=== PATIENT | female | born 1975 | race Caucasian/White ===

== ENCOUNTER 2019-10-23 08:36 | Inpatient (IN) | payer SELFPAY ==
[2019-10-23 08:37] VITALS: BP 96/45; PULSE 86; RESP 16; TEMP 36.4; O2SAT 99; BMI 22.4
--- NOTE | 2019-10-23 08:49 | EKG12_ITS ---
Test Reason : SUB ABUSE Blood Pressure : / mmHG Vent. Rate : 070 BPM Atrial Rate : 070 BPM P-R Int : 168 ms QRS Dur : 078 ms QT Int : 378 ms P-R-T Axes : 057 061 051 degrees QTc Int : 408 ms Normal sinus rhythm Normal ECG Confirmed by DORIAN LAWRENCE, ZARINA ([id number]), tape editor PANTERA URBANO ([id number]) on 10/26/2019 1:11:13 PM Referred By: KELLY Confirmed By:ZARINA ALARCON MD
--- NOTE | 2019-10-23 08:49 | RAD_ITS ---
STUDY: X-RAY CHEST REASON FOR EXAM: Female, 43 years old. CHEST PAIN, MID STERNAL, TECHNIQUE: Single AP portable view of the chest. COMPARISON: None. FINDINGS: The lungs are clear and expanded. Scattered calcified granulomas. There is no demonstrated pleural abnormality. Normal size heart. Normal mediastinum and cynthia. Normal visualized pulmonary arteries. Normal visualized aortic arch and descending thoracic aorta. Normal visualized thoracic spine. Normal visualized ribs, clavicles, and shoulders. There is no demonstrated abnormality of the visualized soft tissue structures of the upper abdomen. RAD/Chest 1 View (Portable) IMPRESSION: Normal x-ray examination of the chest. Electronically Signed: Kofi Torres, at 9:42 EDT , Service support ,
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
[2019-10-23 09:39] LABS: Amphetamine Urine VISTA POSITIVE (<1000 ng/mL); Barbiturate Urine VISTA NEGATIVE (< 200 ng/mL); Benzodiazepine Urine VISTA NEGATIVE (< 200 ng/mL); Cocaine Urine VISTA NEGATIVE (< 300 ng/mL); Ecstacy Urine VISTA NEGATIVE (< 500 ng/mL); Methadone Urine VISTA NEGATIVE (< 300 ng/mL); PCP Urine VISTA NEGATIVE (< 25 ng/mL); THC Urine VISTA NEGATIVE (< 50 ng/mL); Vista UDS pH Range 6
[2019-10-23] MEDS: Lactated Ringers 1,000 ML 999 ML IV (10:01)
[2019-10-23] MEDS: Acetaminophen 500 MG Tablet 1000 MG PO (10:01)
[2019-10-23] MEDS: Ondansetron 4 MG/2 ML Vial IV (10:02)
[2019-10-23 10:03] VITALS: BP 100/58; PULSE 84; RESP 16; TEMP 36.4; O2SAT 99
[2019-10-23 10:10] LABS: Absolute Lymphocyte Count 2.51 X10^3/uL (0.83-4.51); Absolute Neutrophil Count 3.2 X10^3/uL (2.0-7.7); Basophil# 0.03 X10^3/uL; Basophil% 0.5 % (0-1); Eosinophil# 0.11 X10^3/uL; Eosinophils% 1.8 % (0-5); Hematocrit 48.4 % (37-47); Hemoglobin 15.9 g/dL (12.0-15.0); Lymphocyte # 2.51 X10^3/ul (4.0); Lymphocyte % 40.7 % (19-41); Mean Corp Hgb Conc 32.9 g/dL (32-36); Mean Corpuscular Hgb 32.3 pg (27.0-32.0); Mean Corpuscular Volume 98.2 fL (81-99); Monocyte# 0.28 X10^3/uL; Monocyte% 4.5 % (0-10); NRBC Flagged by Analyzer 0 % (0-5); Neutrophil # 3.22 X10^3/uL (2.7-7.7); Neutrophil % 52.2 % (47-70); Platelet Count 301 K/mm3 (150-450); RBC Distribution Width CV 11.9 % (11.6-14.6); RBC Distribution Width SD 43.4 fl (35.1-43.9); Red Blood Count 4.93 M/mm3 (4.2-5.4); White Blood Count 6.2 K/mm3 (4.4-11.0)
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
[2019-10-23 10:19] LABS: ALB/GLOB Ratio 1.2 RATIO (0.9-2.4); AST(SGOT) 28 U/L (15-37); Alanine Aminotransfer ALT/SGPT 21 U/L (13-56); Albumin, Serum 3.9 g/dL (3.2-5.0); Alcohol, Blood (Medical)-Serum < 3.0 mg/dL; Alkaline Phosphatase 132 U/L (45-117); Anion Gap 3 (5-15); BUN 15 mg/dL (7-18); BUN/Creat Ratio 21.7 RATIO (10-20); Calcium,Total 9.5 mg/dL (8.5-10.1); Chloride 103 mmol/L (98-107); Creatinine, Serum 0.69 mg/dL (0.55-1.02); EST Glomerular Filtration Rate 99 mL/min (>60); Est Glom Filt Rate - Afr Amer 120 mL/min (>60); Estimated Creatinine Clearance 108.24 ml/min; GGTP 19 U/L (5-55); Globulin 3.2 g/dL (2.2-4.2); Glucose 77 mg/dL (74-106); Potassium 4.6 mmol/L (3.5-5.1); Protein, Total 7.1 g/dL (6.4-8.2); Sodium Level 139 mmol/L (136-145)
--- NOTE | 2019-10-23 10:20 | CM.ED ---
Social Work Consult: Substance Abuse Informant: Self-Referral Met with patient in room. Introduced self and transition social worker role. Patient open to speaking with this transition social worker. Patient reports substance of choice is opioids and alcohol. Patient seeking medical management of withdrawal symptoms. Patient states to have already been speaking with Pat and plans to follow up with residential program after going through [facility] program at [facility]. Patient voicing no questions. Patient verbally agreeing to [facility] contract. Telephone call to Dania Stewart. Voicemail left updated on patient admission to [facility] program. Only patient room number provided in voicemail. Vonda RAMIREZ, SANDIE
[2019-10-23 11:07] VITALS: BMI 22.8; BMI 22.9
[2019-10-23 11:08] VITALS: BP 83/44; PULSE 67; RESP 17; TEMP 36.7; O2SAT 100
[2019-10-23 11:14] LABS: Prothrombin Time (Protime)PT. 12.3 SECONDS (11.7-14.9)
--- NOTE | 2019-10-23 11:29 | NURSING ---
belongs in [place]
[2019-10-23 11:45] LABS: Mucous, Urine 0 SEEN /hpf (<or=2+); Red Blood Cells-Urine 0 SEEN /hpf (0-5)
[2019-10-23 11:48] LABS: Color, Urine Yellow (Yellow); Glucose, Dipstick Normal (Normal); Ketone-Dipstick Negative (Negative); Leukocyte Esterase-Dipstick 25 /ul (Negative); Nitrite-Dipstick Negative (Negative); Occult Blood-Urine Negative /ul (Negative); Protein-Dipstick Negative (Negative); Specific Gravity, Urine 1.015 (1.002-1.030); Urine Bilirubin Dipstick Negative (Negative); Urine Clarity Sl. Cloudy (Clear); Urine Urobilinogen Normal (Normal)
[2019-10-23 11:59] LABS: Bacteria 1+ /hpf (None Seen); Squamous Epithelial Cells - UA 0-5 SEEN /hpf (5-10); White Blood Cells 0-5 SEEN /hpf (0-5)
[2019-10-23] MEDS: Phenobarbital 32.4 MG Tablet 64.8 MG PO ×3 (12:34→21:02)
[2019-10-23] MEDS: Enoxaparin 40 MG/0.4 ML Syringe SC (12:34)
[2019-10-23] MEDS: Lactated Ringers 1,000 ML 125 ML IV (12:35)
[2019-10-23 14:00] VITALS: BP 91/49; PULSE 81; RESP 16; TEMP 36.9; O2SAT 95
[2019-10-23 20:48] VITALS: BP 104/58; PULSE 72; RESP 16; TEMP 36.8; O2SAT 98
[2019-10-23] MEDS: Buprenorphine HCl 2 MG TAB.SUBL SL (21:06)
[2019-10-24 01:11] VITALS: BP 90/57; PULSE 67; RESP 16; TEMP 36.6; O2SAT 100
[2019-10-24] MEDS: Phenobarbital 32.4 MG Tablet 64.8 MG PO ×6 (01:17→19:32)
[2019-10-24 05:04] VITALS: BP 92/50; PULSE 65; RESP 16; TEMP 36.6; O2SAT 95
[2019-10-24] MEDS: Buprenorphine HCl 2 MG TAB.SUBL SL ×3 (05:08→20:07)
[2019-10-24 08:38] VITALS: BP 90/50; PULSE 78; RESP 14; TEMP 36.4; O2SAT 97
[2019-10-24] MEDS: Folic Acid 1 MG Tablet PO (08:40)
[2019-10-24] MEDS: Thiamine Hydrochloride 100 MG Tablet PO (08:40)
[2019-10-24] MEDS: Enoxaparin 40 MG/0.4 ML Syringe SC (08:41)
[2019-10-24] MEDS: 0.9% Saline Lock 10 ML Syringe IV (08:42)
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
[2019-10-24 12:08] VITALS: BP 94/56; PULSE 73; RESP 18; TEMP 36.3; O2SAT 97
[2019-10-24 14:02] LABS: Anion Gap 3 (5-15); BUN 11 mg/dL (7-18); BUN/Creat Ratio 16.3 RATIO (10-20); Calcium,Total 8.8 mg/dL (8.5-10.1); Chloride 104 mmol/L (98-107); Creatinine, Serum 0.67 mg/dL (0.55-1.02); EST Glomerular Filtration Rate 102 mL/min (>60); Est Glom Filt Rate - Afr Amer 123 mL/min (>60); Estimated Creatinine Clearance 110.34 ml/min; Glucose 85 mg/dL (74-106); Potassium 3.8 mmol/L (3.5-5.1); Sodium Level 140 mmol/L (136-145)
[2019-10-24 16:27] VITALS: BP 92/62; PULSE 85; RESP 16; TEMP 36.6; O2SAT 96
[2019-10-24] MEDS: Methocarbamol 750 MG Tablet 1500 MG PO (16:32)
[2019-10-24 20:05] VITALS: BP 99/62; PULSE 75; RESP 16; TEMP 36.6; O2SAT 99
[2019-10-25] MEDS: Phenobarbital 32.4 MG Tablet 64.8 MG PO ×6 (00:14→21:14)
[2019-10-25 02:16] VITALS: BP 96/58; PULSE 72; RESP 16; TEMP 36.4; O2SAT 96
[2019-10-25] MEDS: Buprenorphine HCl 2 MG TAB.SUBL SL ×3 (05:12→21:13)
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
[2019-10-25 10:26] VITALS: BP 88/44; PULSE 71; RESP 16; TEMP 36.8; O2SAT 99
[2019-10-25] MEDS: Enoxaparin 40 MG/0.4 ML Syringe SC (10:33)
[2019-10-25] MEDS: Thiamine Hydrochloride 100 MG Tablet PO (10:33)
[2019-10-25] MEDS: Folic Acid 1 MG Tablet PO (10:33)
[2019-10-25 12:08] VITALS: BP 98/54; PULSE 75; RESP 16; TEMP 37; O2SAT 100
[2019-10-25] MEDS: Dicyclomine 10 MG Capsule 20 MG PO (13:27)
[2019-10-25] MEDS: Methocarbamol 750 MG Tablet 1500 MG PO (13:27)
[2019-10-25] MEDS: hydrOXYzine PAM 25 MG Capsule 50 MG PO (13:38)
[2019-10-25 16:00] VITALS: BP 117/82; PULSE 73; RESP 18; TEMP 36.8; O2SAT 98
[2019-10-25] MEDS: Gabapentin 300 MG Capsule PO (16:00)
[2019-10-25] MEDS: Acetaminophen 500 MG Tablet PO (16:00)
[2019-10-25 21:09] VITALS: BP 118/73; PULSE 76; RESP 18; TEMP 36.7; O2SAT 97
[2019-10-25 21:22] VITALS: RESP 18
[2019-10-26] MEDS: Gabapentin 300 MG Capsule PO (02:30)
[2019-10-26] MEDS: Phenobarbital 32.4 MG Tablet 64.8 MG PO ×2 (02:30→07:36)
[2019-10-26 02:33] VITALS: BP 100/66; PULSE 82; RESP 18; TEMP 36.9; O2SAT 97
[2019-10-26] MEDS: Folic Acid 1 MG Tablet PO (07:36)
[2019-10-26] MEDS: Thiamine Hydrochloride 100 MG Tablet PO (07:36)
[2019-10-26 07:38] VITALS: BP 105/71; PULSE 78; RESP 16; TEMP 36.8; O2SAT 100
[2019-10-26 07:41] VITALS: BP 105/71; PULSE 78; RESP 16; TEMP 36.8; O2SAT 100
--- NOTE | 2019-10-26 08:57 | DCINST_ITS ---
- Discharge Diagnoses Current Active Problems: Current Active and Chronic Problems Acute hyperactive alcohol withdrawal delirium (Acute) Acute hyperactive opioid withdrawal delirium (Acute) Polysubstance dependence including opioid drug with daily use (Chronic) Reason(s) for Visit for Discharge Instructions: Acute opioid and alcohol withdrawal You will use the following diet at home:: Regular Your food should be the consistency of: Regular Your liquids should be the consistency of: Regular/Thin Discharge Activity: Return to Normal Activity Additional Instructions: You are strongly advised to avoid alcohol or use of any illicit drug. You can take tylenol or ibuprofen for pain. Follow-up with your outpatient rehab program as scheduled. Allergies/Adverse Reactions: Allergies NSAIDS (Non-Steroidal Anti-Inflamma Adverse Reaction (Verified 10/23/19 08:39) Other sulfamethoxazole [From Bactrim] Adverse Reaction (Verified 10/23/19 08:39) Nausea trimethoprim [From Bactrim] Adverse Reaction (Verified 10/23/19 08:39) Nausea Medications to take at Discharge Estradiol [Divigel] 0.06 mg TOPICAL DAILY 09/13/15 Fluoxetine [Prozac] 20 mg PO DAILY 09/13/15 Gabapentin [Neurontin] 800 mg PO DAILY PRN 09/13/15 Progesterone,Micronized [Prometrium] 20 mg PO DAILY 09/13/15 Testosterone [Androgel] 1.25 gm TOPICAL DAILY 09/13/15 Ondansetron [Zofran Odt] 4 mg PO Q8H PRN PRN #10 tablet 03/14/16 Folic Acid 1 mg PO DAILY@0800 30 Days #30 tab 10/26/19 Thiamine Hydrochloride [Vitamin B1] 100 mg PO DAILYCM 30 Days #30 tab 10/26/19 The following prescriptions were given: Folic Acid 1 mg PO DAILY@0800 30 Days #30 tab Transmission Status: Pending to [facility] #[id number] Thiamine Hydrochloride [Vitamin B1] 100 mg PO DAILYCM 30 Days #30 tab Transmission Status: Pending to [facility] #[id number] Primary Care Physician: Care Physician,No Primary [Primary Care Provider] - Please follow up with your Primary Care Physician in: within 1-2 weeks Test Results: Test results from this visit will be discussed in further detail at your follow- up appointment, if applicable. Proposed Discharge Date: 10/26/19
--- NOTE | 2019-10-26 08:59 | DS.PCM_ITS ---
Discharge Date and Diagnosis - Problem List Patient Problems: Active and Suspected Problems Acute hyperactive alcohol withdrawal delirium (Acute) Acute hyperactive opioid withdrawal delirium (Acute) Date of Admission: 10/23/19 Date of Discharge: 10/26/19 - Primary Discharge Diagnosis Acute Problems: Active Problems Acute hyperactive alcohol withdrawal delirium (Acute) Acute hyperactive opioid withdrawal delirium (Acute) Atypical musculoskeletal/chest wall pain - Secondary Discharge Diagnosis Chronic Problems: Chronic Problems Polysubstance dependence including opioid drug with daily use (Chronic) Hospital Course and Treatment Imaging Results: Clinical Impression(s) from Imaging Studies Chest X-Ray 10/23/19 08:49 IMPRESSION: Normal x-ray examination of the chest. Electronically Signed: Kofi Torres, at 9:42 EDT , Service support , Operations: None Procedures: None Summary of Care Provided: The patient is a 44 year old F with past medical history of chronic alcohol use disorder as well as opioid use disorder comes in for medical stabilization from alcohol and opioid withdrawal.. Patient drinks about 12 beers and large amounts of vodka. She also snorts fentanyl daily. Her last drink was a day before admission. Her last use of fentanyl was the night before admission. Patient comes in complaining of anterior chest wall pain. She was admitted and managed on the buprenorphine and phenobarbital taper. There were no acute events during the hospital stay. Patient Problems: Active and Suspected Problems Acute hyperactive alcohol withdrawal delirium (Acute) Acute hyperactive opioid withdrawal delirium (Acute) Subjective: On the day of discharge, patient was seen and examined. She complains of controlled chest pain, reproducible by chest palpation and twisting her torso. Reassurance given that chest x-rays were reported negative for acute fractures. - Physical Exam Vitals/I&O's: Vital Signs Temp Pulse Resp BP Pulse Ox 98.3 F 78 16 105/71 100 10/26/19 07:41 10/26/19 07:41 10/26/19 07:41 10/26/19 07:41 10/26/19 07:41 Oxygen Delivery Method Room Air Weight: 68.3 kg Body Mass Index (BMI) 22.8 Intake and Output for Last 24 Hours 10/24/19 10/25/19 10/26/19 23:59 23:59 23:59 Intake Total 3549 / 3549 300 / 300 Balance 3549 / 3549 300 / 300 General: Alert, Oriented x3, Cooperative, No apparent distress HEENT: Atraumatic, PERRLA, EOMI, Normocephalic Oral: Moist Mucosa Neck: Supple Lungs: Clear to auscultation, Normal air movement Cardiovascular: Regular rate, Regular Rhythm, Normal S1, Normal S2, No murmurs, - - Tenderness on palpation the sternal region. Abdomen: Bowel Sounds Present, Soft, Non Tender, Non-Distended, No Hepato- splenomegaly Extremities: No edema Skin: No rashes Musculoskeletal: No Tenderness to Palpation of Joints or Extremities Lymphatic: No Cervical, Supraclavicular, or Inguinal Adenopathy Neurological: Cranial nerves II-XII grossly intact, Neuro grossly intact Psych/Mental Status: Normal Affect, Appropriate Current Medications Acetaminophen (Tylenol) 500 mg PO Q4H PRN PRN PRN Reason: Temp > 100.4 F Last Admin: 10/25/19 16:00 Dose: 500 mg Documented by: Al Hydroxide/Mg Hydroxide (Mylanta Ii) 30 ml PO Q6H PRN PRN PRN Reason: dyspesia Bisacodyl (Dulcolax) 10 mg RECTAL DAILY PRN PRN Reason: Constipation Buprenorphine HCl (Buprenorphine Hcl) 2 mg SL Q12H [facility]; Taper Stop: 10/26/19 20:59 Last Admin: 10/25/19 21:13 Dose: 2 mg Documented by: Clonidine (Catapres) 0.1 mg PO Q8H PRN PRN PRN Reason: RESTLESSNESS Dicyclomine HCl (Bentyl) 20 mg PO Q6H PRN PRN PRN Reason: abdominal discomfort Last Admin: 10/25/19 13:27 Dose: 20 mg Documented by: Enoxaparin Sodium (Lovenox) 40 mg SC DAILY [facility] Last Admin: 10/25/19 10:33 Dose: 40 mg Documented by: Folic Acid (Folic Acid) 1 mg PO DAILY@0800 [facility] Last Admin: 10/26/19 07:36 Dose: 1 mg Documented by: Gabapentin (Neurontin) 300 mg PO Q8H PRN PRN PRN Reason: moderate to severe anxiety Last Admin: 10/26/19 02:30 Dose: 300 mg Documented by: Hydroxyzine Pamoate (Vistaril Pamoate Capsule) 50 mg PO Q4H PRN PRN PRN Reason: mild anxiety Last Admin: 10/25/19 13:38 Dose: 50 mg Documented by: Loperamide HCl (Imodium) 2 mg PO Q4H PRN PRN PRN Reason: LOOSE STOOLS Methocarbamol (Methocarbamol) 1,500 mg PO Q6H PRN PRN PRN Reason: MUSCLE SPASM Last Admin: 10/25/19 13:27 Dose: 1,500 mg Documented by: Ondansetron HCl (Zofran) 8 mg PO Q8H PRN PRN PRN Reason: NAUSEA Phenobarbital (Phenobarbital) 64.8 mg PO Q6H [facility]; Taper Stop: 10/27/19 20:29 Last Admin: 10/26/19 07:36 Dose: 64.8 mg Documented by: Senna (Senokot) 2 tablet PO QHS PRN PRN Reason: Constipation Sodium Chloride () 10 - 40 ml IV UD PRN PRN Reason: SALINE FLUSH Last Admin: 10/24/19 08:42 Dose: 10 ml Documented by: Thiamine HCl (Vitamin B1) 100 mg PO DAILYCM KT Last Admin: 10/26/19 07:36 Dose: 100 mg Documented by: Trazodone HCl (Desyrel) 100 mg PO QHS PRN PRN Reason: INSOMNIA Discharge Diet: No Restrictions Discharge Activity: Return to Normal Activity Home Medications: Medications to take at Discharge Estradiol [Divigel] 0.06 mg TOPICAL DAILY 09/13/15 Fluoxetine [Prozac] 20 mg PO DAILY 09/13/15 Gabapentin [Neurontin] 800 mg PO DAILY PRN 09/13/15 Progesterone,Micronized [Prometrium] 20 mg PO DAILY 09/13/15 Testosterone [Androgel] 1.25 gm TOPICAL DAILY 09/13/15 Ondansetron [Zofran Odt] 4 mg PO Q8H PRN PRN #10 tablet 03/14/16 Folic Acid 1 mg PO DAILY@0800 30 Days #30 tab 10/26/19 Thiamine Hydrochloride [Vitamin B1] 100 mg PO DAILYCM 30 Days #30 tab 10/26/19 Following Prescriptions Were Given to Patient: Folic Acid 1 mg PO DAILY@0800 30 Days #30 tab Transmission Status: Received by [facility] #[id number] Thiamine Hydrochloride [Vitamin B1] 100 mg PO DAILYCM 30 Days #30 tab Transmission Status: Received by [facility]/pharmacy #[id number] Primary Care Physician: Care Physician,No Primary [Primary Care Provider] - Please follow up with your Primary Care Physician in: within 1-2 weeks Disposition: Home Minutes spent on discharge:: 25 Patient Condition:: Stable Medical Necessity - Tobacco Use Smoking Status: Never smoker Tobacco Use: Non-smoker Meaningful Use Info Meaningful Use Diagnoses (Choose all that apply): None applicable Inpatient E&M: 85069 Disch Hosp
[2019-10-26] MEDS: Enoxaparin 40 MG/0.4 ML Syringe SC (10:12)
[2019-10-26] MEDS: Buprenorphine HCl 2 MG TAB.SUBL SL (10:12)
--- NOTE | 2019-10-26 10:18 | ADDICTION ---
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 Patient will be transported to [facility] main office by [facility] staff and will meet with nursing staff. [facility]. She is amiable to this plan.
== END 2019-10-26 11:50 | disposition home or self-care (01) | DRG 897 ==
LOC: ED 09:17 → MS3 10:13
PROVIDERS: Admitting Provider Internal Medicine; Emergency Provider Emergency Medicine; Visit Provider Internal Medicine
DX: F10.231 Alcohol dependence with withdrawal delirium (principal); F11.23 Opioid dependence with withdrawal; R07.89 Other chest pain; Z90.710 Acquired absence of both cervix and uterus; Z85.42 Personal history of malignant neoplasm of other parts of uterus
CPT/HCPCS: 71045; 80048; 80053; 80307; 80320; 81001; 82977; 85025; 85610; 93005; 99284; J7120; A4216; G0480; J2405